=== PATIENT | male | born 1950 | race Caucasian/White ===

== ENCOUNTER 2021-01-22 09:03 | Day surgery (SDC) | payer MEDICARE, OTHER ==
[2021-01-21 14:21] LABS: BASOPHILS % (AUTO) 0.7 % (0-1); EOSINOPHILS # (AUTO) 0.2 X10'3 (0-0.9); EOSINOPHILS % (AUTO) 3.7 % (0-6); HEMATOCRIT 45.2 % (42.0-52.0); HEMOGLOBIN 14.8 g/dl (14.0-17.9); LYMPHOCYTES # (AUTO) 1.4 X10'3 (1.1-4.8); LYMPHOCYTES % (AUTO) 22.6 % (21-51); MEAN CORPUSCULAR HEMOGLOBIN 26.9 PG (27.0-31.0); MEAN CORPUSCULAR HGB CONC 32.9 g/dL (33.0-36.5); MEAN CORPUSCULAR VOLUME 81.9 FL (78-98); MEAN PLATELET VOLUME 7.9 FL (7.4-10.4); MONOCYTES # (AUTO) 0.9 X10'3 (0-0.9); MONOCYTES % (AUTO) 14.5 % (2-12); NEUTROPHILS # (AUTO) 3.7 X10'3 (1.8-7.7); NEUTROPHILS % (AUTO) 58.5 % (42-75); PLATELET COUNT 256 X10'3 (140-440); RED BLOOD COUNT 5.51 X10'6 (4.70-6.10); RED CELL DISTRIBUTION WIDTH 16.7 % (11.5-14.5); WHITE BLOOD COUNT 6.3 X10'3 (4.5-11.0)
[2021-01-21 14:22] LABS: ALBUMIN 3.6 G/DL (3.4-5.0); ANION GAP 6 (8-16); BLOOD UREA NITROGEN 19 MG/DL (7-18); BUN/CREATININE RATIO 18.6 (5.4-32.0); CALCIUM 8.9 MG/DL (8.5-10.1); CHLORIDE 108 MMOL/L (99-107); CREATININE 1.02 MG/DL (0.60-1.10); GLUCOSE 90 MG/DL (70-104); POTASSIUM 4.2 MMOL/L (3.5-5.1); SODIUM 143 MMOL/L (135-145); TOTAL CARBON DIOXIDE 29.4 MMOL/L (24-32); eGFR 73 ML/MIN
[2021-01-21 14:25] LABS: PARTIAL THROMBOPLASTIN TIME 29 SECONDS (22-32)
[2021-01-22] VITALS (11 sets, daily range): BP systolic 108–143; BP diastolic 38–92
[~2021-01-22] VITALS: Ht 182.9 cm; Wt 102.9 kg
[2021-01-22] MEDS ORDERED: LORazepam 0.5 MG tablet PO PRN (09:25)
[2021-01-22] MEDS ORDERED: sodium bicarbonate (8.4%) inj. 150 ML in dextrose 5%-water 1,000 ML IV ONE (09:25)
[2021-01-22] MEDS ORDERED: diphenhydrAMINE 25mg capsule PO PRN (09:25)
[2021-01-22] MEDS ORDERED: LIDOcaine/PRILOcaine 5gm cream TP ONE (09:25)
[2021-01-22] MEDS ORDERED: RIVA20TA PO (09:36)
[2021-01-22] MEDS ORDERED: LOSA25TA41 PO (09:36)
[2021-01-22] MEDS ORDERED: FLEC100T PO (09:36)
[2021-01-22] MEDS ORDERED: LEVO150T8 PO (09:36)
[2021-01-22] MEDS ORDERED: CITA20TA17 PO (09:36)
[2021-01-22] MEDS ORDERED: CARV3.1244 PO (09:36)
[2021-01-22] MEDS ORDERED: ISOS30TA84 PO (09:36)
[2021-01-22] MEDS ORDERED: LISI20TA28 PO (09:38)
[2021-01-22] MEDS ORDERED: ASPI-1071 PO (09:38)
[2021-01-22] MEDS ORDERED: nitroGLYCERIN-Tridil 50MG/D5W 250 ML IV ONE (10:11)
[2021-01-22] MEDS ORDERED: fentaNYL/PF 50MCG/1 ML 2ML syringe ONE (10:12)
[2021-01-22] MEDS ORDERED: iohexol 350MG/ML 100ml bottle IV ONE (10:12)
[2021-01-22] MEDS ORDERED: iohexol 350 MG/ML 50ML vial IV ONE ×2 (10:12→11:31)
[2021-01-22] MEDS ORDERED: verapamil 2.5 mg/ml inj IV ONE (10:12)
[2021-01-22] MEDS ORDERED: midazolam 1 mg/ML 2ml injection ONE (10:12)
[2021-01-22] MEDS ORDERED: heparin 1,000unit/ml 10ml vial 10 ML ONE (10:12)
[2021-01-22] MEDS ORDERED: LIDOcaine 1% (10mg/ml)w/preservative injection 20ml MDV ONE (10:12)
[2021-01-22 12:35] LABS: ISTAT Hct ART 44 %PCV (42-52); ISTAT O2 SATURATION ARTERIAL 97 % (95-98); ISTAT SOURCE ART
[2021-01-22 13:07] LABS: ISTAT Hct MIX 43 %PCV (42-52); ISTAT O2 SATURATION MIX VENOUS 65 % (60-80); ISTAT SOURCE VEN
== END 2021-01-22 16:30 | disposition home or self-care (01) ==
LOC: SSTAY O 09:03
PROVIDERS: ATTEND Internal Medicine Cardiovascular Disease
DX: R94.39 Abnormal result of other cardiovascular function study (principal); I25.10 Atherosclerotic heart disease of native coronary artery without angina pectoris; I10 Essential (primary) hypertension; E78.5 Hyperlipidemia, unspecified; I48.19 Other persistent atrial fibrillation; E03.9 Hypothyroidism, unspecified; I34.2 Nonrheumatic mitral (valve) stenosis; F41.9 Anxiety disorder, unspecified; F32.9 Major depressive disorder, single episode, unspecified; G47.30 Sleep apnea, unspecified; Z98.890 Other specified postprocedural states; Z98.1 Arthrodesis status; Z79.82 Long term (current) use of aspirin; Z79.899 Other long term (current) drug therapy; Z79.01 Long term (current) use of anticoagulants; Z87.891 Personal history of nicotine dependence; Z82.49 Family history of ischemic heart disease and other diseases of the circulatory system; Z80.9 Family history of malignant neoplasm, unspecified
CPT/HCPCS: 36415; 76937; 80048; 82803; 85014; 85025; 85610; 85730; 93005; 93460; 93567; 99152; 99153; C1751; C1769; C1894; J1644; J2001; J2250; J3010; Q0163; Q9967; A4620; A5120; A6258; J3490

== ENCOUNTER 2021-01-28 06:21 | Day surgery (SDC) | payer MEDICARE, OTHER ==
[2021-01-28] VITALS (11 sets, daily range): BP systolic 105–139; BP diastolic 64–77
[~2021-01-28] VITALS: Ht 182.9 cm; Wt 102.3 kg
[~2021-01-28 06:21] MED LIST: ASPI-1071 PO; CARV3.1244 PO; CITA20TA17 PO; FLEC100T PO; ISOS30TA84 PO; LEVO150T8 PO; LISI20TA28 PO; LOSA25TA41 PO; RIVA20TA PO
[2021-01-28] MEDS ORDERED: LORazepam 0.5 MG tablet PO PRN (06:40)
[2021-01-28] MEDS ORDERED: LIDOcaine/PRILOcaine 5gm cream TP ONE (06:40)
[2021-01-28] MEDS ORDERED: diphenhydrAMINE 25mg capsule PO PRN (06:40)
[2021-01-28] MEDS ORDERED: normal saline 1,000 ML IV SCH (06:40)
[2021-01-28] MEDS ORDERED: LIDOcaine 1% (10mg/ml) 2ml vial SQ ONE (07:00)
[2021-01-28] MEDS ORDERED: fentaNYL/PF 50MCG/1 ML 2ML syringe ONE ×2 (07:39→09:55)
[2021-01-28] MEDS ORDERED: LIDOcaine 1% (10mg/ml)w/preservative injection 20ml MDV ONE (07:39)
[2021-01-28] MEDS ORDERED: midazolam 1 mg/ML 2ml injection ONE ×3 (07:39→09:55)
[2021-01-28] MEDS ORDERED: verapamil 2.5 mg/ml inj IV ONE (07:39)
[2021-01-28] MEDS ORDERED: nitroGLYCERIN-Tridil 50MG/D5W 250 ML IV ONE (07:40)
[2021-01-28] MEDS ORDERED: iohexol 350MG/ML 100ml bottle IV ONE (07:40)
[2021-01-28] MEDS ORDERED: heparin 1,000unit/ml 10ml vial 10 ML ONE (07:40)
[2021-01-28] MEDS ORDERED: iohexol 350 MG/ML 50ML vial IV ONE (07:40)
[2021-01-28 07:44] LABS: BASOPHILS # (AUTO) 0.1 X10'3 (0-0.2); BASOPHILS % (AUTO) 0.9 % (0-1); EOSINOPHILS # (AUTO) 0.3 X10'3 (0-0.9); EOSINOPHILS % (AUTO) 4.7 % (0-6); HEMATOCRIT 43.3 % (42.0-52.0); HEMOGLOBIN 14.4 g/dl (14.0-17.9); LYMPHOCYTES # (AUTO) 1.5 X10'3 (1.1-4.8); LYMPHOCYTES % (AUTO) 22.7 % (21-51); MEAN CORPUSCULAR HEMOGLOBIN 27.1 PG (27.0-31.0); MEAN CORPUSCULAR HGB CONC 33.4 g/dL (33.0-36.5); MEAN CORPUSCULAR VOLUME 81.2 FL (78-98); MEAN PLATELET VOLUME 7.9 FL (7.4-10.4); MONOCYTES # (AUTO) 0.9 X10'3 (0-0.9); MONOCYTES % (AUTO) 14.5 % (2-12); NEUTROPHILS # (AUTO) 3.7 X10'3 (1.8-7.7); NEUTROPHILS % (AUTO) 57.2 % (42-75); PLATELET COUNT 249 X10'3 (140-440); RED BLOOD COUNT 5.33 X10'6 (4.70-6.10); WHITE BLOOD COUNT 6.5 X10'3 (4.5-11.0)
[2021-01-28] MEDS ORDERED: iohexol 350 MG/1 ML 200ml bottle ONE (07:46)
[2021-01-28] MEDS ORDERED: heparin 25,000 UNIT/250ml bag 250 ML IV ONE (07:52)
[2021-01-28 07:58] LABS: PARTIAL THROMBOPLASTIN TIME 26 SECONDS (22-32)
[2021-01-28 08:23] LABS: ALBUMIN 3.5 G/DL (3.4-5.0); ANION GAP 12 (8-16); BLOOD UREA NITROGEN 14 MG/DL (7-18); BUN/CREATININE RATIO 15.1 (5.4-32.0); CALCIUM 8.6 MG/DL (8.5-10.1); CHLORIDE 107 MMOL/L (99-107); CREATININE 0.93 MG/DL (0.60-1.10); GLUCOSE 89 MG/DL (70-104); POTASSIUM 3.7 MMOL/L (3.5-5.1); SODIUM 142 MMOL/L (135-145); TOTAL CARBON DIOXIDE 23.2 MMOL/L (24-32); eGFR 81 ML/MIN
[2021-01-28] MEDS ORDERED: clopidogrel 300mg tablet ONE (09:22)
[2021-01-28] MEDS ORDERED: amiodarone 50MG/ML inj IV ONE (09:36)
[2021-01-28] MEDS ORDERED: atropine 0.1mg/ml 10ml syringe ONE (09:59)
== END 2021-01-28 15:01 | disposition home or self-care (01) ==
LOC: SSTAY O 06:21
PROVIDERS: ATTEND Internal Medicine Cardiovascular Disease
DX: R53.83 Other fatigue (principal); R06.02 Shortness of breath; I25.10 Atherosclerotic heart disease of native coronary artery without angina pectoris; I48.19 Other persistent atrial fibrillation; I08.0 Rheumatic disorders of both mitral and aortic valves; I10 Essential (primary) hypertension; E78.5 Hyperlipidemia, unspecified; E03.9 Hypothyroidism, unspecified; F41.9 Anxiety disorder, unspecified; F32.9 Major depressive disorder, single episode, unspecified; I49.5 Sick sinus syndrome; Z98.1 Arthrodesis status; Z98.890 Other specified postprocedural states; Z79.82 Long term (current) use of aspirin; Z79.899 Other long term (current) drug therapy; Z87.891 Personal history of nicotine dependence; Z82.49 Family history of ischemic heart disease and other diseases of the circulatory system; Z80.9 Family history of malignant neoplasm, unspecified
CPT/HCPCS: 36415; 80048; 85025; 85347; 85610; 85730; 92960; 93005; 93312; 93325; 94799; 99152; 99153; C1725; C1751; C1769; C1874; C1894; C9600; J0461; J1644; J2001; J2250; J3010; J7030; Q0163; Q9967; 94760; A4620; A5120; J0282; J3490

== ENCOUNTER 2021-03-26 06:04 | Day surgery (SDC) | payer MEDICARE, OTHER ==
[2021-03-25 12:08] LABS: BASOPHILS % (AUTO) 0.8 % (0-1); EOSINOPHILS # (AUTO) 0.3 X10'3 (0-0.9); EOSINOPHILS % (AUTO) 4.7 % (0-6); HEMATOCRIT 44.9 % (42.0-52.0); HEMOGLOBIN 14.6 g/dl (14.0-17.9); LYMPHOCYTES # (AUTO) 1.4 X10'3 (1.1-4.8); LYMPHOCYTES % (AUTO) 22.3 % (21-51); MEAN CORPUSCULAR HEMOGLOBIN 26.8 PG (27.0-31.0); MEAN CORPUSCULAR HGB CONC 32.6 g/dL (33.0-36.5); MEAN CORPUSCULAR VOLUME 82.1 FL (78-98); MONOCYTES # (AUTO) 0.8 X10'3 (0-0.9); MONOCYTES % (AUTO) 13.5 % (2-12); NEUTROPHILS # (AUTO) 3.6 X10'3 (1.8-7.7); NEUTROPHILS % (AUTO) 58.7 % (42-75); PLATELET COUNT 232 X10'3 (140-440); RED BLOOD COUNT 5.47 X10'6 (4.70-6.10); RED CELL DISTRIBUTION WIDTH 16.6 % (11.5-14.5); WHITE BLOOD COUNT 6.1 X10'3 (4.5-11.0)
[2021-03-25 12:25] LABS: ALBUMIN 3.9 G/DL (3.4-5.0); ANION GAP 6 (8-16); BLOOD UREA NITROGEN 16 MG/DL (7-18); BUN/CREATININE RATIO 14.5 (5.4-32.0); CHLORIDE 108 MMOL/L (99-107); GLUCOSE 91 MG/DL (70-104); POTASSIUM 4.2 MMOL/L (3.5-5.1); SODIUM 143 MMOL/L (135-145); TOTAL CARBON DIOXIDE 28.8 MMOL/L (24-32); eGFR 67 ML/MIN
[2021-03-25 12:26] LABS: APTT 28 SECONDS (22-32)
[~2021-03-26] VITALS: Ht 182.9 cm; Wt 103.6 kg
[2021-03-26] MEDS ORDERED: normal saline 1000ml 1,000 ML IV SCH (06:25)
[2021-03-26] MEDS ORDERED: ceFAZolin 2gm in dextrose, iso 50 ML IV ONE (06:30)
[2021-03-26] MEDS ORDERED: CLOP75TA34 PO (06:43)
[2021-03-26] MEDS ORDERED: AMIO200T61 PO (06:43)
[2021-03-26] MEDS ORDERED: ESOM20CA PO (06:44)
[2021-03-26] MEDS ORDERED: ROSU10TA28 PO (06:44)
[2021-03-26] MEDS ORDERED: midazolam 1 mg/ML 2ml injection ONE (07:20)
[2021-03-26] MEDS ORDERED: fentaNYL/PF 50MCG/1 ML 2ML syringe ONE (07:21)
[2021-03-26] MEDS ORDERED: LIDOcaine 1% w/EPI 1:100,000 30ml vial (MDV) ONE (07:21)
[2021-03-26] MEDS ORDERED: ceFAZolin 1000mg inj ONE (07:21)
--- NOTE | 2021-03-26 07:28 | NUR ---
Contacted MD to discuss pt reported symptoms of cough that started last night. New orders given.
--- NOTE | 2021-03-26 08:20 | NUR ---
Pt procedure cancelled per MD. Pt told to contact MD office when symptoms resolved after 2 weeks to reschedule. Education provided on vaccination and quarantine.
[2021-03-26 10:01] LABS: BASOPHILS % (AUTO) 0.1 % (0-1); EOSINOPHILS % (AUTO) 0.1 % (0-6); HEMATOCRIT 41.3 % (42.0-52.0); HEMOGLOBIN 13.7 g/dl (14.0-17.9); LYMPHOCYTES # (AUTO) 0.7 X10'3 (1.1-4.8); LYMPHOCYTES % (AUTO) 5.6 % (21-51); MEAN CORPUSCULAR HEMOGLOBIN 30.9 PG (27.0-31.0); MEAN CORPUSCULAR HGB CONC 33.2 g/dL (33.0-36.5); MEAN CORPUSCULAR VOLUME 93.3 FL (78-98); MEAN PLATELET VOLUME 8.5 FL (7.4-10.4); MONOCYTES # (AUTO) 0.5 X10'3 (0-0.9); MONOCYTES % (AUTO) 3.9 % (2-12); NEUTROPHILS # (AUTO) 10.6 X10'3 (1.8-7.7); NEUTROPHILS % (AUTO) 90.3 % (42-75); PLATELET COUNT 144 X10'3 (140-440); RED BLOOD COUNT 4.43 X10'6 (4.70-6.10); RED CELL DISTRIBUTION WIDTH 15.9 % (11.5-14.5); WHITE BLOOD COUNT 11.7 X10'3 (4.5-11.0)
[2021-03-27] MEDS ORDERED: DEXA6TAB PO ×3 (12:32→12:37)
[2021-03-27] MEDS ORDERED: ALBU18HF2 INH (12:33)
== END 2021-03-26 09:00 | disposition home or self-care (01) ==
LOC: SSTAY O 06:04
PROVIDERS: ATTEND Internal Medicine Cardiovascular Disease
DX: I48.91 Unspecified atrial fibrillation (principal); Z53.8 Procedure and treatment not carried out for other reasons; Z20.822 Contact with and (suspected) exposure to COVID-19
CPT/HCPCS: 36415; 80048; 85025; 85610; 85730; 87635; 93005; C9803; J0690; J2250; J3010; J3490; J7030

== ENCOUNTER 2021-03-27 09:02 | Emergency (ER) | payer MEDICARE, OTHER ==
[~2021-03-27] VITALS: Ht 182.9 cm; Wt 100.0 kg
[~2021-03-27 09:02] MED LIST changes: +AMIO200T61 PO; +CLOP75TA34 PO; +ESOM20CA PO; -FLEC100T PO; +ROSU10TA28 PO
[2021-03-27 09:54] LABS: BASOPHILS # (AUTO) 0.1 X10'3 (0-0.2); EOSINOPHILS # (AUTO) 0.2 X10'3 (0-0.9); EOSINOPHILS % (AUTO) 4.3 % (0-6); HEMATOCRIT 42.4 % (42.0-52.0); HEMOGLOBIN 13.7 g/dl (14.0-17.9); LYMPHOCYTES # (AUTO) 0.5 X10'3 (1.1-4.8); LYMPHOCYTES % (AUTO) 8.7 % (21-51); MEAN CORPUSCULAR HEMOGLOBIN 26.6 PG (27.0-31.0); MEAN CORPUSCULAR HGB CONC 32.3 g/dL (33.0-36.5); MEAN CORPUSCULAR VOLUME 82.1 FL (78-98); MONOCYTES % (AUTO) 20.1 % (2-12); NEUTROPHILS # (AUTO) 3.4 X10'3 (1.8-7.7); NEUTROPHILS % (AUTO) 65.9 % (42-75); PLATELET COUNT 199 X10'3 (140-440); RED BLOOD COUNT 5.16 X10'6 (4.70-6.10); RED CELL DISTRIBUTION WIDTH 17.3 % (11.5-14.5); WHITE BLOOD COUNT 5.2 X10'3 (4.5-11.0)
[2021-03-27 09:57] LABS: APTT 32 SECONDS (22-32)
[2021-03-27 10:09] LABS: ALBUMIN 3.6 G/DL (3.4-5.0); ALBUMIN/GLOBULIN RATIO 1.3 (1.1-1.5); ALKALINE PHOSPHATASE 79 IU/L (46-116); ANION GAP 9 (8-16); ASPARTATE AMINO TRANSFERASE 16 U/L (10-37); BILIRUBIN,TOTAL 0.7 MG/DL (0.1-1.0); BLOOD UREA NITROGEN 12 MG/DL (7-18); BUN/CREATININE RATIO 11.2 (5.4-32.0); CALCIUM 8.2 MG/DL (8.5-10.1); CHLORIDE 105 MMOL/L (99-107); CREATININE 1.07 MG/DL (0.60-1.10); GLUCOSE 96 MG/DL (70-104); POTASSIUM 4.4 MMOL/L (3.5-5.1); SODIUM 140 MMOL/L (135-145); TOTAL PROTEIN 6.4 G/DL (6.4-8.2); eGFR 69 ML/MIN
[2021-03-27 10:41] LABS: ALANINE AMINOTRANSFERASE 14 U/L (12-78)
[2021-03-27] MEDS ORDERED: DEXAMETHASONE 6 MG TABLET PO ONE (11:15)
[2021-03-27] MEDS ORDERED: DEXAMETHASONE 6 MG TABLET PO SCH (11:15)
[2021-03-27] MEDS ORDERED: SOTROVIMAB 500mg injection 500 MG in normal saline 100ml IV soln 100 ML IV ONE (11:15)
[2021-03-27 12:16] LABS: ANISOCYTOSIS 1+; PLATELET ESTIMATE NORMAL; TOTAL CELLS COUNTED 100
[2021-03-27 12:18] LABS: ELLIPTOCYTES 1+
[2021-03-27] MEDS ORDERED: DEXA6TAB PO ×3 (12:32→12:37)
[2021-03-27] MEDS ORDERED: ALBU18HF2 INH (12:33)
[2021-03-27 12:48] VITALS: BP 127/78
== END 2021-03-27 15:17 | disposition home or self-care (01) ==
LOC: ER 09:02
DX: U07.1 COVID-19 (principal); J12.82 Pneumonia due to coronavirus disease 2019; I10 Essential (primary) hypertension; I48.91 Unspecified atrial fibrillation; Z88.8 Allergy status to other drugs, medicaments and biological substances; Z79.82 Long term (current) use of aspirin; Z79.01 Long term (current) use of anticoagulants; Z79.899 Other long term (current) drug therapy
CPT/HCPCS: 36415; 71045; 71250; 80053; 83605; 84145; 84484; 85007; 85025; 85610; 85730; 93005; 99285; J3490; M0247; Q0247; J8540

== ENCOUNTER 2021-04-30 06:19 | Day surgery (SDC) | payer MEDICARE, OTHER ==
[2021-04-29 14:34] LABS: BASOPHILS % (AUTO) 0.7 % (0-1); EOSINOPHILS # (AUTO) 0.2 X10'3 (0-0.9); EOSINOPHILS % (AUTO) 3.6 % (0-6); HEMATOCRIT 42.1 % (42.0-52.0); HEMOGLOBIN 13.6 g/dl (14.0-17.9); LYMPHOCYTES # (AUTO) 1.4 X10'3 (1.1-4.8); MEAN CORPUSCULAR HEMOGLOBIN 26.3 PG (27.0-31.0); MEAN CORPUSCULAR HGB CONC 32.4 g/dL (33.0-36.5); MEAN CORPUSCULAR VOLUME 81.3 FL (78-98); MEAN PLATELET VOLUME 7.5 FL (7.4-10.4); MONOCYTES # (AUTO) 1.1 X10'3 (0-0.9); MONOCYTES % (AUTO) 16.4 % (2-12); NEUTROPHILS # (AUTO) 4.1 X10'3 (1.8-7.7); NEUTROPHILS % (AUTO) 59.3 % (42-75); PLATELET COUNT 298 X10'3 (140-440); RED BLOOD COUNT 5.18 X10'6 (4.70-6.10); RED CELL DISTRIBUTION WIDTH 18.3 % (11.5-14.5); WHITE BLOOD COUNT 6.9 X10'3 (4.5-11.0)
[2021-04-29 14:38] LABS: APTT 27 SECONDS (22-32)
[2021-04-29 14:41] LABS: ALBUMIN 3.6 G/DL (3.4-5.0); ANION GAP 10 (8-16); BLOOD UREA NITROGEN 13 MG/DL (7-18); BUN/CREATININE RATIO 14.1 (5.4-32.0); CALCIUM 8.7 MG/DL (8.5-10.1); CHLORIDE 107 MMOL/L (99-107); CREATININE 0.92 MG/DL (0.60-1.10); GLUCOSE 102 MG/DL (70-104); MAGNESIUM 2.1 MG/DL (1.5-2.4); POTASSIUM 4.1 MMOL/L (3.5-5.1); SODIUM 143 MMOL/L (135-145); TOTAL CARBON DIOXIDE 26.3 MMOL/L (24-32); eGFR 82 ML/MIN
[2021-04-29 17:47] LABS: TOTAL CELLS COUNTED 100
[2021-04-29 17:48] LABS: ANISOCYTOSIS 2+; ELLIPTOCYTES 1+; PLATELET ESTIMATE NORMAL; SMUDGE CELLS 1+
[2021-04-30] VITALS (12 sets, daily range): BP systolic 129–157; BP diastolic 81–98
[~2021-04-30] VITALS: Ht 182.9 cm; Wt 103.1 kg
[~2021-04-30 06:19] MED LIST changes: +ALBU18HF2 INH; +DEXA6TAB PO
[2021-04-30] MEDS ORDERED: normal saline 1000ml 1,000 ML IV SCH (06:45)
[2021-04-30] MEDS ORDERED: cefazolin/dext.iso 2gm/50ml 50 ML IV ONE (06:45)
[2021-04-30] MEDS ORDERED: fentaNYL/PF 50MCG/1 ML 2ML syringe ONE (07:26)
[2021-04-30] MEDS ORDERED: midazolam 1 mg/ML 2ml injection ONE ×2 (07:26→08:51)
[2021-04-30] MEDS ORDERED: vancomycin 1,000mg inj ONE (07:27)
[2021-04-30] MEDS ORDERED: iohexol 350 MG/ML 50ML vial IV ONE (07:27)
[2021-04-30] MEDS ORDERED: LIDOcaine 1% w/EPI 1:100,000 30ml vial (MDV) ONE (07:27)
[2021-04-30] MEDS ORDERED: ceFAZolin 1000mg inj ONE (07:34)
[2021-04-30] MEDS ORDERED: HYDROcodone/acetaminophen 10/325mg tab PO PRN (09:45)
[2021-04-30] MEDS ORDERED: HYDROcodone/acetaminophen 5mg/325mg tablet PO PRN (09:45)
[2021-04-30] MEDS ORDERED: VANCOMYCIN 1GM/200ML IVPB 200 ML IV ONE (11:00)
--- NOTE | 2021-04-30 14:36 | NUR ---
Pt up ambulating in halls, tolerating PO. Dressing to (L) chest CDI, no s/s hematoma, no bleeding noted & VSS.
== END 2021-04-30 15:15 | disposition home or self-care (01) ==
LOC: SSTAY O 06:19
PROVIDERS: ATTEND Internal Medicine Cardiovascular Disease
DX: I49.5 Sick sinus syndrome (principal); I10 Essential (primary) hypertension; E78.5 Hyperlipidemia, unspecified; E03.9 Hypothyroidism, unspecified; F41.9 Anxiety disorder, unspecified; F32.A Depression, unspecified; I34.2 Nonrheumatic mitral (valve) stenosis; I48.19 Other persistent atrial fibrillation; G47.30 Sleep apnea, unspecified; Z98.1 Arthrodesis status; Z98.890 Other specified postprocedural states; Z79.82 Long term (current) use of aspirin; Z79.899 Other long term (current) drug therapy; Z79.01 Long term (current) use of anticoagulants; Z87.891 Personal history of nicotine dependence; Z95.5 Presence of coronary angioplasty implant and graft; Z82.49 Family history of ischemic heart disease and other diseases of the circulatory system; Z80.9 Family history of malignant neoplasm, unspecified
CPT/HCPCS: 33208; 99152; 99153; C1785; C1894; C1898; J0690; J2250; J3010; J3370; J3490; J7030; Q9967; 71046; 80048; 83735; 85007; 85025; 85610; 85730; 93005; A4565; A4620

== ENCOUNTER 2021-05-01 01:28 | Inpatient (IN) | payer MEDICARE, OTHER ==
[~2021-05-01] VITALS: Ht 182.9 cm; Wt 226.0 kg
[~2021-05-01 01:28] MED LIST changes: -ALBU18HF2 INH; -DEXA6TAB PO; -LISI20TA28 PO
--- NOTE | 2021-05-01 02:39 | NUR ---
Pressure dressing reinforced.
--- NOTE | 2021-05-01 03:18 | NUR ---
Dusty at bedside for initial evaluation.
[2021-05-01 04:01] LABS: BASOPHILS # (AUTO) 0.1 X10'3 (0-0.2); BASOPHILS % (AUTO) 0.8 % (0-1); EOSINOPHILS # (AUTO) 0.3 X10'3 (0-0.9); EOSINOPHILS % (AUTO) 2.5 % (0-6); HEMATOCRIT 39.9 % (42.0-52.0); HEMOGLOBIN 12.9 g/dl (14.0-17.9); LYMPHOCYTES # (AUTO) 1.4 X10'3 (1.1-4.8); LYMPHOCYTES % (AUTO) 12.1 % (21-51); MEAN CORPUSCULAR HEMOGLOBIN 26.1 PG (27.0-31.0); MEAN CORPUSCULAR HGB CONC 32.2 g/dL (33.0-36.5); MEAN CORPUSCULAR VOLUME 81.1 FL (78-98); MEAN PLATELET VOLUME 7.7 FL (7.4-10.4); MONOCYTES # (AUTO) 2.1 X10'3 (0-0.9); MONOCYTES % (AUTO) 18.4 % (2-12); NEUTROPHILS # (AUTO) 7.4 X10'3 (1.8-7.7); NEUTROPHILS % (AUTO) 66.2 % (42-75); PLATELET COUNT 301 X10'3 (140-440); RED BLOOD COUNT 4.92 X10'6 (4.70-6.10); RED CELL DISTRIBUTION WIDTH 18.2 % (11.5-14.5); WHITE BLOOD COUNT 11.2 X10'3 (4.5-11.0)
[2021-05-01] MEDS ORDERED: HYDROcodone/acetaminophen 5mg/325mg tablet PO ONE (04:05)
[2021-05-01 04:23] LABS: ALANINE AMINOTRANSFERASE 18 U/L (12-78); ALBUMIN 3.7 G/DL (3.4-5.0); ALBUMIN/GLOBULIN RATIO 1.4 (1.1-1.5); ANION GAP 13 (8-16); ASPARTATE AMINO TRANSFERASE 18 U/L (10-37); BILIRUBIN,TOTAL 0.5 MG/DL (0.1-1.0); BLOOD UREA NITROGEN 14 MG/DL (7-18); BUN/CREATININE RATIO 15.4 (5.4-32.0); CALCIUM 8.7 MG/DL (8.5-10.1); CHLORIDE 106 MMOL/L (99-107); CREATININE 0.91 MG/DL (0.60-1.10); GLUCOSE 105 MG/DL (70-104); POTASSIUM 4.3 MMOL/L (3.5-5.1); SODIUM 145 MMOL/L (135-145); TOTAL CARBON DIOXIDE 25.8 MMOL/L (24-32); TOTAL PROTEIN 6.4 G/DL (6.4-8.2); eGFR 83 ML/MIN
[2021-05-01 04:32] LABS: TOTAL CELLS COUNTED 100
[2021-05-01 04:33] LABS: ANISOCYTOSIS 2+; PLATELET ESTIMATE NORMAL
[2021-05-01 04:37] LABS: ELLIPTOCYTES FEW
--- NOTE | 2021-05-01 06:41 | NUR ---
per DR BOYD STERILE DRESSING APPLIED NORMAL SALINE PLACED ON CHEST AND WRAPPED WITH COBAN TO APPLY PRESSURE
[2021-05-01] MEDS ORDERED: mag hydrox/Alum hydrox/simeth 30ml oral suspension PO PRN (09:25)
[2021-05-01] MEDS ORDERED: potassium Cl 20 mEq SR tablet PO PRN ×2 (09:25)
[2021-05-01] MEDS ORDERED: magnesium 2GM in 50ml NS 50 ML IV PRN (09:25)
[2021-05-01] MEDS ORDERED: potassium CL 10mEq/100ml bag 100 ML IV PRN (09:25)
[2021-05-01] MEDS ORDERED: magnesium Cl slow-release 64mg tablet PO PRN (09:25)
[2021-05-01] MEDS ORDERED: magnesium 4gm in 100ml NS 100 ML IV PRN (09:25)
[2021-05-01] MEDS ORDERED: acetaminophen 325mg tablet PO PRN (09:25)
[2021-05-01] MEDS ORDERED: ondansetron/PF 4mg/2ml inj IV PRN (09:25)
[2021-05-01 10:13] LABS: MAGNESIUM 2.1 MG/DL (1.5-2.4)
[2021-05-01] MEDS ORDERED: fentaNYL/PF 50MCG/1 ML 2ML syringe ONE ×2 (10:22→11:43)
[2021-05-01] MEDS ORDERED: ceFAZolin 1000mg inj ONE (10:22)
[2021-05-01] MEDS ORDERED: midazolam 1 mg/ML 2ml injection ONE ×2 (10:22→11:43)
[2021-05-01] MEDS ORDERED: LIDOcaine 1% w/EPI 1:100,000 30ml vial (MDV) ONE ×2 (10:22→11:16)
[2021-05-01] MEDS ORDERED: ceFAZolin 2gm in dextrose, iso 50 ML IV ONE (10:50)
[2021-05-01] MEDS ORDERED: HYDROcodone/acetaminophen 5mg/325mg tablet PO PRN (13:35)
[2021-05-01] MEDS ORDERED: HYDROcodone/acetaminophen 10/325mg tab PO PRN (13:35)
[2021-05-01] MEDS ORDERED: VANCOMYCIN 1GM/200ML IVPB 200 ML IV ONE (14:00)
[2021-05-01 15:00] VITALS: BP 146/66
[2021-05-01 18:00] VITALS: BP 149/80
[2021-05-01] MEDS: K and/or MAG REPLACEMENT MC SCH (20:00)
[2021-05-01] MEDS: carVEDilol 3.125mg tablet PO SCH (20:00)
[2021-05-02 06:00] VITALS: BP 137/84
[2021-05-02 06:33] LABS: BASOPHILS # (AUTO) 0.1 X10'3 (0-0.2); BASOPHILS % (AUTO) 0.8 % (0-1); EOSINOPHILS # (AUTO) 0.2 X10'3 (0-0.9); HEMATOCRIT 29.7 % (42.0-52.0); HEMOGLOBIN 9.8 g/dl (14.0-17.9); LYMPHOCYTES # (AUTO) 1.5 X10'3 (1.1-4.8); LYMPHOCYTES % (AUTO) 16.2 % (21-51); MEAN CORPUSCULAR HEMOGLOBIN 26.5 PG (27.0-31.0); MEAN CORPUSCULAR HGB CONC 32.9 g/dL (33.0-36.5); MEAN CORPUSCULAR VOLUME 80.6 FL (78-98); MEAN PLATELET VOLUME 7.7 FL (7.4-10.4); MONOCYTES # (AUTO) 1.8 X10'3 (0-0.9); MONOCYTES % (AUTO) 20.5 % (2-12); NEUTROPHILS # (AUTO) 5.4 X10'3 (1.8-7.7); NEUTROPHILS % (AUTO) 60.5 % (42-75); PLATELET COUNT 225 X10'3 (140-440); RED BLOOD COUNT 3.68 X10'6 (4.70-6.10); RED CELL DISTRIBUTION WIDTH 17.8 % (11.5-14.5); WHITE BLOOD COUNT 8.9 X10'3 (4.5-11.0)
--- NOTE | 2021-05-02 06:37 | NUR ---
Problems reprioritized. Patient report given, questions answered & plan of care reviewed with Darío.
[2021-05-02] MEDS ORDERED: levoTHYROXINE 75mcg tablet PO SCH (07:00)
[2021-05-02 07:07] LABS: ANION GAP 10 (8-16); BLOOD UREA NITROGEN 13 MG/DL (7-18); BUN/CREATININE RATIO 16.7 (5.4-32.0); CHLORIDE 107 MMOL/L (99-107); CREATININE 0.78 MG/DL (0.60-1.10); GLUCOSE 95 MG/DL (70-104); POTASSIUM 4.3 MMOL/L (3.5-5.1); SODIUM 141 MMOL/L (135-145); TOTAL CARBON DIOXIDE 23.7 MMOL/L (24-32); eGFR > 90 ML/MIN
[2021-05-02] MEDS ORDERED: pantoprazole 40mg Tablet.DR PO SCH (07:30)
[2021-05-02] MEDS: K and/or MAG REPLACEMENT MC SCH (08:00)
[2021-05-02] MEDS ORDERED: atorvastatin 20mg tablet PO SCH (08:00)
[2021-05-02] MEDS ORDERED: clopidogrel 75mg tablet PO SCH (08:00)
[2021-05-02] MEDS ORDERED: isosorbide mononitrate 30mg tab.SR.24H PO SCH (08:00)
[2021-05-02] MEDS ORDERED: losartan 25mg tablet PO SCH (08:00)
[2021-05-02] MEDS ORDERED: citalopram 20mg tablet PO SCH (08:00)
[2021-05-02] MEDS: carVEDilol 3.125mg tablet PO SCH (08:28)
[2021-05-02 09:21] LABS: ANISOCYTOSIS 1+; ELLIPTOCYTES FEW; PLATELET ESTIMATE NORMAL; TOTAL CELLS COUNTED 100
[2021-05-02 09:22] LABS: POLYCHROMASIA FEW
[2021-05-02 11:00] VITALS: BP 125/81
--- NOTE | 2021-05-02 12:35 | NUR ---
Patient discharge home alert and orient. Discharge instruction discussed
[2021-05-02] MEDS ORDERED: FLU VACC QS2021-22(6MOS UP)/PF 60 MCG/0.5 ML SYRINGE IM ONE (15:10)
== END 2021-05-02 12:30 | disposition home or self-care (01) | DRG 908 ==
LOC: ER 01:29 → ED HOLD 09:35 → PCU 3S 13:00
PROVIDERS: ADMIT Internal Medicine Cardiovascular Disease; ATTEND Internal Medicine Cardiovascular Disease
PROC: 0JWT0PZ Revision of Cardiac Rhythm Related Device in Trunk Subcutaneous Tissue and Fascia, Open Approach (ICD-10-PCS; principal; 2021-05-01)
PROC: 0JC60ZZ Extirpation of Matter from Chest Subcutaneous Tissue and Fascia, Open Approach (ICD-10-PCS; 2021-05-01)
DX: L76.32 Postprocedural hematoma of skin and subcutaneous tissue following other procedure (principal); I48.92 Unspecified atrial flutter; L76.22 Postprocedural hemorrhage of skin and subcutaneous tissue following other procedure; I49.5 Sick sinus syndrome; I48.91 Unspecified atrial fibrillation; E03.9 Hypothyroidism, unspecified; E78.5 Hyperlipidemia, unspecified; F43.10 Post-traumatic stress disorder, unspecified; G47.33 Obstructive sleep apnea (adult) (pediatric); I10 Essential (primary) hypertension; M25.512 Pain in left shoulder; I25.10 Atherosclerotic heart disease of native coronary artery without angina pectoris; Y83.1 Surgical operation with implant of artificial internal device as the cause of abnormal reaction of the patient, or of later complication, without mention of misadventure at the time of the procedure; Y92.89 Other specified places as the place of occurrence of the external cause; Z79.01 Long term (current) use of anticoagulants; Z79.02 Long term (current) use of antithrombotics/antiplatelets; Z82.49 Family history of ischemic heart disease and other diseases of the circulatory system; Z86.16 Personal history of COVID-19; Z87.891 Personal history of nicotine dependence; Z95.0 Presence of cardiac pacemaker; Z95.5 Presence of coronary angioplasty implant and graft; Z88.8 Allergy status to other drugs, medicaments and biological substances; Z79.899 Other long term (current) drug therapy
CPT/HCPCS: 33222; 36415; 71045; 71046; 80048; 80053; 83735; 85007; 85025; 85610; 85730; 93005; 99152; 99153; 99285; A4620; A6258; A6449; G0378; J0690; J2250; J3010; J3370; J3490; J7030

== ENCOUNTER 2021-07-05 10:38 | Outpatient (CLI) | payer MEDICARE, OTHER | END 2021-07-05 23:59 | disposition home or self-care (01) | LOC: 64 CT 10:38 | PROVIDERS: ATTEND Internal Medicine | DX: J43.9 Emphysema, unspecified (principal); I31.3 Pericardial effusion (noninflammatory); J90 Pleural effusion, not elsewhere classified; I25.10 Atherosclerotic heart disease of native coronary artery without angina pectoris; J98.4 Other disorders of lung | CPT/HCPCS: 71046; 71250 ==